=== PATIENT | female | born 1975 | race Hispanic/Latino ===

== ENCOUNTER 2017-01-17 18:09 | Emergency (ER) | payer OTHER ==
[~2017-01-17] VITALS: Ht 160 cm; Wt 87.9 kg
[~2017-01-17 18:09] MED LIST: CLARITIN; CLARITIN10 MG PO; DOXYCYCLINE HY100 M3 PO; DYMISTA NASAL S23 GM BOTH NARES; IBUPROFEN800 MG PO; KEFLEX500 MG PO; METHERGINE0.2 MG PO; OXECTA5 MG PO; PRENATAL TABLE1 EAC3 PO; VISTARIL25 MG PO; VITAMIN D-32000 UNI2 PO
[2017-01-17 19:01] LABS: HEMATOCRIT 37.7 % (36.0-46.0); MCH 28.5 PG (29.0-34.0); MCHC 33.2 G/DL (30.0-36.0); MCV 86.1 FL (83-99); MEAN PLAT.VOLUME 9.9 uM^3 (9.5-12.4); PLATELET COUNT 292 K/uL (156-360); RBC DIS.WIDTH-CV 11.9 % (11.8-14.6); RBC DIS.WIDTH-SD 37.9 % (39-53); RED BLOOD COUNT 4.38 M/uL (3.80-5.20); WHITE BLOOD COUNT 9.9 K/uL (4.1-10.2)
[2017-01-17 19:08] LABS: CHLORIDE 107 mEq/L (99-109); POTASSIUM 3.5 mEq/L (3.7-5.4); SODIUM 140 mEq/L (136-147)
[2017-01-17 19:10] LABS: GLUCOSE 151 mg/dL (70-99)
[2017-01-17 19:12] LABS: ANION GAP 12 MEQ/L (2-14)
[2017-01-17 19:14] LABS: GFR ESTIMATE (CALCULATED) > 59 mL/min/
[2017-01-17 19:15] LABS: UREA NITROGEN (BUN) 10 mg/dL (9-23)
[2017-01-17 19:47] LABS: ADD MIUA? YES; BILIRUBIN NEGATIVE; BLOOD LARGE; COLOR STRAW ((YELLOW)); GLUCOSE (STRIP) NEGATIVE; KETONES NEGATIVE; LEUKOCYTES NEGATIVE; NITRITE NEGATIVE; PROTEIN (STRIP) NEGATIVE; SPECIFIC GRAVITY 1.004 (1.000-1.030); UROBILINOGEN 0.2 MG/DL (0.2-1.0)
[2017-01-17 19:58] LABS: BACTERIA NONE SEEN /HPF; EPITHELIAL CELLS RARE /HPF; MUCUS NONE SEEN /LPF; RED BLOOD CELLS 20-30 /HPF (0-5); UCUL ADDED? NO; WHITE BLOOD CELLS 0-5 /HPF (0-5)
[2017-01-17 22:10] VITALS: BP 135/95
== END 2017-01-17 22:15 | disposition home or self-care (01) ==
LOC: EME 18:09
DX: O20.0 Threatened abortion (principal); Z3A.09 9 weeks gestation of pregnancy; Z87.59 Personal history of other complications of pregnancy, childbirth and the puerperium
CPT/HCPCS: 76801; 80048; 81003; 84702; 85027; 86900; 86901; 99281; 99285

== ENCOUNTER 2017-07-11 16:43 | Outpatient (CLI) | payer OTHER ==
[2017-07-11 17:01] VITALS: BP 136/88
[2017-07-11] MEDS ORDERED: HUMALOG100 UNIT/1 SQ ×2 (19:46→19:48)
[2017-07-11] MEDS ORDERED: HUMULIN 70100 UNIT/2 SQ ×3 (19:49→19:51)
== END 2017-07-11 19:50 | disposition home or self-care (01) ==
LOC: LDRP-OP 16:43 → 2WEST 16:44 → LDRP-OP 09-21 10:01
DX: O35.8XX0 Maternal care for other (suspected) fetal abnormality and damage, not applicable or unspecified (principal); O24.313 Unspecified pre-existing diabetes mellitus in pregnancy, third trimester; E11.9 Type 2 diabetes mellitus without complications; Z3A.34 34 weeks gestation of pregnancy; O09.523 Supervision of elderly multigravida, third trimester
CPT/HCPCS: 59025; 76818; G0378

== ENCOUNTER 2017-07-16 11:35 | Inpatient (IN) | payer OTHER ==
[2017-07-16] VITALS (24 sets, daily range): BP systolic 137–227; BP diastolic 69–104
[~2017-07-16 11:35] MED LIST changes: +HUMALOG100 UNIT/1 SQ; +HUMULIN 70100 UNIT/2 SQ
[2017-07-16 13:43] LABS: BASOPHIL (%) 0.4 % (0-1); EOSINOPHIL (%) 4.3 % (0-5); EOSINOPHIL COUNT 0.3 K/uL (0-0.3); HEMATOCRIT 32.9 % (36.0-46.0); HEMOGLOBIN 10.5 G/DL (11.9-15.5); IMMATURE GRANULOCYTE (%) 0.7 % (0.0-0.7); LYMPHOCYTE (%) 28.4 % (15-42); LYMPHOCYTE COUNT 2.1 K/uL (1.0-2.8); MCH 25.7 PG (29.0-34.0); MCHC 31.9 G/DL (30.0-36.0); MCV 80.4 FL (83-99); MONOCYTE (%) 7.5 % (3-12); MONOCYTE COUNT 0.6 K/uL (0-0.8); NEUTROPHIL (%) 58.7 % (45-76); NEUTROPHIL COUNT 4.4 K/uL (1.8-6.4); PLATELET COUNT 285 K/uL (156-360); RBC DIS.WIDTH-CV 15.2 % (11.8-14.6); RBC DIS.WIDTH-SD 44.3 % (39-53); RED BLOOD COUNT 4.09 M/uL (3.80-5.20); WHITE BLOOD COUNT 7.5 K/uL (4.1-10.2)
[2017-07-16 13:44] LABS: ALBUMIN 2.7 G/DL (3.2-4.8); ALKALINE PHOSPHATASE 140 IU/L (3-129); ALT (GPT) 15 IU/L (3-49); AST (GOT) 16 IU/L (2-34); CHLORIDE 103 MEQ/L (99-109); CREATININE 0.7 MG/DL (0.6-1.3); GFR ESTIMATE (CALCULATED) > 59 mL/min/; GLUCOSE 79 mg/dL (70-99); POTASSIUM 4.1 MEQ/L (3.7-5.4); SODIUM 133 MEQ/L (136-147); TOTAL BILIRUBIN 0.2 MG/DL (0.0-1.0); TOTAL PROTEIN 5.9 G/DL (6.4-8.3); UREA NITROGEN (BUN) 11 mg/dL (9-23)
[2017-07-16 18:21] LABS: GLUCOSE 110 mg/dL (70-99)
[2017-07-17] VITALS (23 sets, daily range): BP systolic 101–149; BP diastolic 54–91
[2017-07-17 07:05] LABS: BASOPHIL (%) 0.3 % (0-1); EOSINOPHIL (%) 0 % (0-5); HEMATOCRIT 31.5 % (36.0-46.0); HEMOGLOBIN 9.9 G/DL (11.9-15.5); IMMATURE GRANULOCYTE (%) 1.2 % (0.0-0.7); LYMPHOCYTE COUNT 1.1 K/uL (1.0-2.8); MCH 24.7 PG (29.0-34.0); MCHC 31.4 G/DL (30.0-36.0); MCV 78.6 FL (83-99); MONOCYTE (%) 2.4 % (3-12); MONOCYTE COUNT 0.2 K/uL (0-0.8); NEUTROPHIL (%) 81.1 % (45-76); NEUTROPHIL COUNT 6.2 K/uL (1.8-6.4); PLATELET COUNT 305 K/uL (156-360); RBC DIS.WIDTH-SD 42.8 % (39-53); RED BLOOD COUNT 4.01 M/uL (3.80-5.20); WHITE BLOOD COUNT 7.6 K/uL (4.1-10.2)
[2017-07-17 07:27] LABS: ALBUMIN 2.4 G/DL (3.2-4.8); ALKALINE PHOSPHATASE 139 IU/L (3-129); ALT (GPT) 14 IU/L (3-49); AST (GOT) 16 IU/L (2-34); CHLORIDE 103 MEQ/L (99-109); CREATININE 0.6 MG/DL (0.6-1.3); GFR ESTIMATE (CALCULATED) > 59 mL/min/; GLUCOSE 164 mg/dL (70-99); POTASSIUM 4.3 MEQ/L (3.7-5.4); SODIUM 132 MEQ/L (136-147); TOTAL BILIRUBIN 0.3 MG/DL (0.0-1.0); TOTAL PROTEIN 5.2 G/DL (6.4-8.3); UREA NITROGEN (BUN) 11 mg/dL (9-23)
[2017-07-17 17:45] LABS: 24 HR VOLUME 5750 MLS
[2017-07-18] VITALS (21 sets, daily range): BP systolic 96–177; BP diastolic 53–95
[2017-07-18 05:19] LABS: HEMATOCRIT 30.2 % (36.0-46.0); HEMOGLOBIN 9.6 G/DL (11.9-15.5); MCH 24.6 PG (29.0-34.0); MCHC 31.8 G/DL (30.0-36.0); MCV 77.4 FL (83-99); PLATELET COUNT 297 K/uL (156-360); RBC DIS.WIDTH-CV 15.2 % (11.8-14.6); RBC DIS.WIDTH-SD 42.9 % (39-53); WHITE BLOOD COUNT 7.9 K/uL (4.1-10.2)
[2017-07-18 05:54] LABS: ALBUMIN 2.6 G/DL (3.2-4.8); ALKALINE PHOSPHATASE 118 IU/L (3-129); ALT (GPT) 14 IU/L (3-49); AST (GOT) 16 IU/L (2-34); CHLORIDE 103 MEQ/L (99-109); CREATININE 0.6 MG/DL (0.6-1.3); GFR ESTIMATE (CALCULATED) > 59 mL/min/; GLUCOSE 157 mg/dL (70-99); POTASSIUM 4.1 MEQ/L (3.7-5.4); SODIUM 132 MEQ/L (136-147); TOTAL BILIRUBIN 0.3 MG/DL (0.0-1.0); TOTAL PROTEIN 5.5 G/DL (6.4-8.3); UREA NITROGEN (BUN) 12 mg/dL (9-23)
[2017-07-18] MEDS ORDERED: PERCOCET 5/31 TABLET PO (07:30)
[2017-07-18] MEDS ORDERED: MOTRIN800 MG PO (07:30)
[2017-07-18 15:52] LABS: BASOPHIL (%) 0.1 % (0-1); EOSINOPHIL (%) 0.2 % (0-5); HEMATOCRIT 26.3 % (36.0-46.0); HEMOGLOBIN 8.4 G/DL (11.9-15.5); IMMATURE GRANULOCYTE (%) 1.2 % (0.0-0.7); LYMPHOCYTE COUNT 1.5 K/uL (1.0-2.8); MCH 25.4 PG (29.0-34.0); MCHC 31.9 G/DL (30.0-36.0); MCV 79.5 FL (83-99); MONOCYTE (%) 10.2 % (3-12); MONOCYTE COUNT 1.3 K/uL (0-0.8); NEUTROPHIL (%) 76.3 % (45-76); NEUTROPHIL COUNT 9.5 K/uL (1.8-6.4); PLATELET COUNT 268 K/uL (156-360); RBC DIS.WIDTH-CV 15.5 % (11.8-14.6); RBC DIS.WIDTH-SD 44.3 % (39-53); RED BLOOD COUNT 3.31 M/uL (3.80-5.20); WHITE BLOOD COUNT 12.5 K/uL (4.1-10.2)
[2017-07-18 16:08] LABS: ALBUMIN 2.3 G/DL (3.2-4.8); ALKALINE PHOSPHATASE 107 IU/L (3-129); ALT (GPT) 12 IU/L (3-49); AST (GOT) 17 IU/L (2-34); CHLORIDE 101 MEQ/L (99-109); CREATININE 0.6 MG/DL (0.6-1.3); GFR ESTIMATE (CALCULATED) > 59 mL/min/; GLUCOSE 116 mg/dL (70-99); POTASSIUM 4.2 MEQ/L (3.7-5.4); SODIUM 129 MEQ/L (136-147); TOTAL BILIRUBIN 0.2 MG/DL (0.0-1.0); TOTAL PROTEIN 4.5 G/DL (6.4-8.3); UREA NITROGEN (BUN) 15 mg/dL (9-23)
[2017-07-19] VITALS (13 sets, daily range): BP systolic 109–164; BP diastolic 56–79
[2017-07-19 04:25] LABS: BASOPHIL (%) 0.1 % (0-1); EOSINOPHIL (%) 0.7 % (0-5); EOSINOPHIL COUNT 0.1 K/uL (0-0.3); HEMATOCRIT 24.5 % (36.0-46.0); HEMOGLOBIN 7.9 G/DL (11.9-15.5); IMMATURE GRANULOCYTE (%) 0.9 % (0.0-0.7); LYMPHOCYTE (%) 14.9 % (15-42); LYMPHOCYTE COUNT 1.3 K/uL (1.0-2.8); MCH 25.2 PG (29.0-34.0); MCHC 32.2 G/DL (30.0-36.0); MCV 78.3 FL (83-99); MONOCYTE (%) 8.4 % (3-12); MONOCYTE COUNT 0.8 K/uL (0-0.8); NEUTROPHIL COUNT 6.7 K/uL (1.8-6.4); PLATELET COUNT 228 K/uL (156-360); RBC DIS.WIDTH-CV 15.8 % (11.8-14.6); RBC DIS.WIDTH-SD 43.9 % (39-53); RED BLOOD COUNT 3.13 M/uL (3.80-5.20); WHITE BLOOD COUNT 8.9 K/uL (4.1-10.2)
[2017-07-20 02:28] VITALS: BP 155/70
[2017-07-20 07:16] VITALS: BP 115/60
[2017-07-20 12:00] VITALS: BP 135/70
[2017-07-20 14:00] VITALS: BP 137/76
[2017-07-21 08:05] VITALS: BP 132/78
[2017-07-21 12:30] VITALS: BP 135/69
[2017-07-21 16:54] VITALS: BP 190/88
[2017-07-21 17:17] VITALS: BP 120/63
[2017-07-21 21:00] VITALS: BP 141/79
[2017-07-21 23:24] VITALS: BP 129/72
[2017-07-22 03:29] VITALS: BP 152/82
[2017-07-22] MEDS ORDERED: LABETALOL HCL200 MG PO (09:40)
[2017-07-22] MEDS ORDERED: METFORMIN HCL1000 M3 PO (09:41)
[2017-07-22] MEDS ORDERED: FEOSOL325 MG PO (09:41)
== END 2017-07-22 14:40 | disposition home or self-care (01) | DRG 765 ==
LOC: LDRP-OP 11:35 → 2WEST 11:37 → LDRP-OP 09-21 20:23
PROVIDERS: Obstetrics & Gynecology; Obstetrics & Gynecology Obstetrics
PROC: 10D00Z1 Extraction of Products of Conception, Low, Open Approach (ICD-10-PCS; principal; 2017-07-18)
DX: O14.14 Severe pre-eclampsia complicating childbirth (principal); O32.1XX0 Maternal care for breech presentation, not applicable or unspecified; O99.02 Anemia complicating childbirth; D62 Acute posthemorrhagic anemia; O24.12 Pre-existing type 2 diabetes mellitus, in childbirth; E11.65 Type 2 diabetes mellitus with hyperglycemia; O34.13 Maternal care for benign tumor of corpus uteri, third trimester; D25.9 Leiomyoma of uterus, unspecified; O99.214 Obesity complicating childbirth; E66.9 Obesity, unspecified; Z79.4 Long term (current) use of insulin; Z3A.35 35 weeks gestation of pregnancy; Z37.0 Single live birth
CPT/HCPCS: 80053; 81050; 82947 91; 82948; 83735; 84156; 85025; 85027; 86850; 86900; 86901; 88307; G0378; J0690; J0702; J1815; J2270; J2274; J3010; J3475; J7030; J7120